=== PATIENT | male | born 1940 | race Caucasian/White ===

== ENCOUNTER → 2017-02-18 | Day surgery (SDC) | payer OTHER ==
[~2017-02-18] VITALS: Ht 182.9 cm; Wt 156.0 kg
[~2017-02-18] MED LIST: ACET-1138 PO; AMOX500C3 PO; APIX1TAB3 PO; ASPI81TA28 PO; CHLOTAB3 PO; CLB/200 PO; CLC100 PO; CLC6 PO; CRS10 PO; DABI1CAP PO; FERR325T51 PO; FERRTAB18 PO; FRS/40 PO; HYDR-4795 RE; HYDR25SU6 RE; LIDOCAINE HCL 2% 2 ML VIAL (20MG/ML) ONE; LOSA1TAB PO; METO25TA3 PO; OXYC1TAB3 PO; PANT40TA PO; POTA10CA28 PO; PREG1CAP70 PO; PROPOFOL IV EMULSION 10 MG/ML 20 ML VIAL IV ONE; PSEU120T21 PO; ROPI2TAB6 PO
[2017-02-18 06:59] VITALS: Ht 182.9 cm; Wt 156.0 kg
[2017-02-18 07:00] VITALS: BP 139/89; PULSE 65; TEMP 36.3; O2SAT 97
--- NOTE | 2017-02-18 07:27 | History and Physical ---
History & Physical Date of Service February 18, 2017. History & Physical Patient Name: Jignesh Ellsworth Date of : 1940 CHIEF COMPLAINT: Exertional shortness of breath, atrial fibrillation HISTORY OF PRESENT ILLNESS: Mr Ellsworth to 76-year-old male had recently been seen as an outpatient in routine cardiology follow-up and had been noted to of reverted back to atrial fibrillation. He undergone prior direct-current cardioversion in 2014. He complained of worsening exertional shortness of breath with activity such as walking in his home or trying to climb stairs. In addition to his history of atrial fibrillation, he is also followed for calcific aortic valve stenosis. At a recent repeat echocardiogram revealed normal LVEF and stable moderate aortic valve stenosis. The patient had tentatively been scheduled for direct- current cardioversion approximately 3 weeks ago but this had to be canceled because his international normalized ratio was below goal. He had since been transitioned to Eliquis which his is tolerating well and had not missed any doses. PAST MEDICAL HISTORY: 1. Persistent atrial fibrillation 2. Right bundle branch block 3. Obesity 4. Moderate aortic valve stenosis 5. Tim's esophagus 6. Diabetes 7. Dyslipidemia 8. Hypertension 9. Traumatic intracranial hemorrhage 10. Osteoarthritis 11. Obstructive sleep apnea for which he is on CPAP PAST SURGICAL HISTORY: 1. Insertion of inferior vena cava 2003 2. Bilateral knee replacement 5. Direct-current cardioversion 2014 FAMILY HISTORY: I cholesterol, hypertension SOCIAL HISTORY: Nonsmoker , he is retired meteorologist REVIEW OF SYSTEMS: A Complete Review of 10 Systems is as stated above or negative. ALLERGIES: Ramelteon (Verified Allergy, Unknown, HIVES, 05/09/14) HOME MEDICATIONS: Medications Dose Route/Sig Max Daily Dose Days Date Category Eliquis (Apixaban) 5 Mg Tab 5 Mg PO BID 02/18/17 Reported Cozaar (Losartan Potassium) 25 Mg Tab 25 Mg PO QAM 07/18/16 Reported Colcrys (Colchicine) 0.6 Mg Tab 1 Tab PO HS 07/18/16 Reported Iron Supplement (Ferrous Sulfate) 325 Mg Tab 1 Tab PO Q2D 30 07/11/15 Reported Parafon Forte Dsc (Chlorzoxazone) 500 Mg Tab 500 Mg PO TID PRN 07/11/15 Reported Roxicodone Ir (Oxycodone HCl) 5 Mg Tab 1 Tab PO Q4H PRN 07/11/15 Reported Aspirin Ec (Aspirin) 81 Mg Tab 81 Mg PO DAILY 11/10/13 Reported Toprol Xl (Metoprolol Succinate) 25 Mg Tabcr 25 Mg PO QAM 11/10/13 Reported Micro-K Ext Rel (Potassium Chloride) 10 Meq Capcr 10 Meq PO QAM 11/10/13 Reported Lasix (Furosemide) 40 Mg Tab 40 Mg PO QAM 11/10/13 Reported CeleBREX (Celecoxib) 200 Mg Cap 200 Mg PO BID 11/10/13 Reported Colace * (Docusate Sodium) 100 Mg Cap 100 Mg PO BID 09/20/11 Reported Crestor * (Rosuvastatin Calcium) 5 Mg Tab 5 Mg PO HS 08/21/11 Reported Protonix (Pantoprazole Sodium) 40 Mg Tab 40 Mg PO QAM 08/21/11 Reported Lyrica (Pregabalin) 150 Mg Cap 150 Mg PO BID 08/21/11 Reported Requip (Ropinirole HCl) 2 Mg Tab 2 Mg PO HS 08/21/11 Reported PHYSICAL EXAMINATION: Last Vital Signs Documentation Date Time Temp Pulse Resp B/P Pulse Ox O2 Delivery O2 Flow Rate FiO2 02/18/17 07:00 36.3 65 16 139/89 97 Room Air General: AAOx3, No acute distress Head exam is unremarkable. No scleral icterus of corneal arcus noted. Neck is without jugular venous distension, thyromegally, or carotid bruits. Carotid upstrokes are brisk bilaterally. no bruits Lungs are clear to auscultation and percussion. Cardiac exam : Irregular rhythm, 2/6 systolic murmur Abdominal exam: Obese, soft nontender Extremities: 1+ bilateral lower extremity edema, chronically wears compression stockings Psychiatric: normal affect and mood. Neurologic: grossly normal, no focal deficits ADDITIONAL DATA: Telemetry reveals atrial fibrillation, rate controlled, right bundle branch block morphology ASSESSMENT: 1. Exertional shortness of breath, symptomatic atrial fibrillation 2. Moderate aortic stenosis 3. Obesity 4. Obstructive sleep apnea on CPAP RECOMMENDATIONS / PLAN: Patient had taken his most recent dose Eliquis this am at 5 am. He reports no recent missed doses. Plan to proceed with direct-current cardioversion with the assistance of anesthesia. Informed consent was obtained and is on the chart. Sergey Minor DO, [facility] Associate Browning Processor [facility] The chart was completed utilizing [employer] Speech Voice Recognition Software. Grammatical errors, random word insertions, pronoun errors, and incomplete sentences are an occasional consequence of this system due to software limitations, ambient noise, and hardware issues. Any formal questions or concerns about the content, text, or information contained within the body of this dictation should be directly addressed to the provider for clarification.
[2017-02-18 07:43] VITALS: BP 118/83; PULSE 71; O2SAT 97
[2017-02-18 07:45] VITALS: BP 107/71; PULSE 63; O2SAT 96
[2017-02-18 07:50] VITALS: BP 102/71; PULSE 64; O2SAT 98
--- NOTE | 2017-02-18 07:54 | Cardiology Procedure Brief Nt ---
Preliminary Cardiology Note Procedure Date February 18, 2017. Pre-Procedure Diagnosis atrial fibrillation Post-Procedure Diagnosis unsuccessful direct current cardioversion Procedure(s) Performed Direct-current cardioversion Body Coverer Sergey Minor DO Vamp Creaser(s) not appicable Estimated Blood Loss none Preliminary Findings After informed consent was obtained and timeout was performed the patient underwent synchronized direct-current cardioversion receiving doses of 300 J and 360 J of biphasic energy. The patient was in sinus rhythm for repeat brief time, after the second dose of energy but then reverted back to a rate controlled atrial fibrillation. Vital signs remained stable throughout the procedure. Recommendations Continue current medications. Anesthesia 40 mg of IV lidocaine and 60 mg of IV propofol, Dr Elida Pierson, anesthesia Complication(s) None Disposition cardiac laboratory courier recovery unit
--- NOTE | 2017-02-18 08:42 | Anesthesiology Progress Note ---
Anesthesia Post Op Note Date & Time February 18, 2017 at 08:42 Vital Signs Pain Intensity: 0 Vital Signs Past 12 Hours Date Time Temp Pulse Resp B/P Pulse Ox O2 Delivery O2 Flow Rate FiO2 02/18/17 08:30 73 18 97/80 95 Room Air 02/18/17 08:20 51 18 120/74 95 Room Air 02/18/17 08:13 56 18 120/72 94 Room Air 02/18/17 08:03 55 18 118/73 94 Nasal Cannula 2 02/18/17 07:53 36.4 63 18 123/76 97 Nasal Cannula 2 02/18/17 07:50 64 16 102/71 98 Nasal Cannula 4 02/18/17 07:45 63 16 107/71 96 Nasal Cannula 4 02/18/17 07:43 71 16 118/83 97 Nasal Cannula 4 02/18/17 07:00 36.3 65 16 139/89 97 Room Air Notes Mental Status: alert / awake / arousable, participated in evaluation Pt Amnestic to Procedure: Yes Nausea / Vomiting: adequately controlled Pain: adequately controlled Airway Patency, RR, SpO2: stable & adequate, see Notes BP & HR: stable & adequate Hydration State: stable & adequate Anesthetic Complications: no major complications apparent unable to convert to SR
--- NOTE | 2017-02-18 08:44 | Discharge Instructions ---
Discharge Instructions Procedure Procedure Date: February 18, 2017. Reason for Visit: atrial fibrillation Discharge Discharge Date: February 18, 2017. Discharge Diagnosis: persistent atrial fibrillation, unsuccessful cardioversion Last Recorded Wt (Kilograms): 156 Anesthesia Post Anesthesia Instructions: If you have had General Anesthesia or IV Sedation: * Do not drive today. * Resume driving when surgeon permits. * Do not make important decisions or sign legal documents today. * Call surgeon for: 1. Temperature elevations greater than 101 degrees F. 2. Uncontrollable pain. 3. Excessive bleeding. 4. Persistent nausea and vomiting. 5. Medication intolerance (nausea, vomiting or rash). * For nausea and vomiting use only clear liquids such as: tea, soda, bouillon until nausea subsides, then gradually increase diet as tolerated. * If you have any concerns or questions, call your surgeon's office. If physician is unavailable and it is an emergency, call 911 or go to the nearest emergency room. Instructions Activity Recommendations: limitations as noted below Recommended Home Diet: resume previous diet Allergies: Coded Allergies: Ramelteon (Verified Allergy, Unknown, HIVES, 07/18/16) Provider Instructions ACTIVITY RECOMMENDATIONS: Resume activities as tolerated with no limitations unless specified. x__ No lifting over _10_ pounds for 24 hours. x_ Do not engage in vigorous exercise, sexual activity, or sports for 24 hours. x_ Do not drive or operate any motorized equipment for 24 hours. x__ You may return to work/school tomorrow. SPECIAL CARE: If you experience coughing up or vomiting of blood, contact ___Dr Minor ___ Follow Up Follow-up with: Dr Minor as planned [facility] Recommendations: Call your doctor if: * Temperature above 101 degrees * Pain not relieved by pain medicine ordered * There is increased drainage or redness from any incision * You have any unanswered questions or concerns. Your Doctors Instructions noted above were prepared by provider Sergey Minor. Patient Signature Section: Patient Instructions Signature Page Jignesh Ellsworth Patient (or Guardian) Signature/Date: I have read and understand the instructions given to me by my caregivers. Caregiver/RN/Doctor Signature/Date: The above-named patient and/or guardian has received patient instructions on this date. + Original Patient Signature Page (only) stays with chart. Please make copy for patient.
[2017-02-18 08:45] VITALS: BP 110/76; PULSE 80; O2SAT 97
--- NOTE | 2017-02-18 09:10 | CARDIOVERSION ---
DATE OF OPERATION: 02/18/2017 CARDIOVERSION DATE OF PROCEDURE: 02/18/2017. PREPROCEDURE DIAGNOSIS: Persistent atrial fibrillation. POSTPROCEDURE DIAGNOSIS: Unsuccessful direct current cardioversion, persistent atrial fibrillation. PROCEDURE PERFORMED: Synchronized direct current cardioversion. ADAPTED PHYSICAL EDUCATION TEACHER: Sergey Minor D.O. AGILE BUSINESS ANALYST: Not applicable. PROCEDURE: After informed consent was obtained and time out was performed, the patient underwent synchronized direct current cardioversion receiving doses of 300 joules and 360 joules of biphasic energy. The patient was in sinus rhythm for a brief amount of time after the second dose of energy and then revered back to a rate controlled atrial fibrillation with right bundle branch block unchanged compared to his previous EKG. The vital signs remained stable throughout the procedure. Anesthesia was administered by Dr. Chun Pierson of the anesthesia department per anesthesia consultation and the patient received 40 mg of IV lidocaine and 60 mg of IV propofol. COMPLICATIONS: None. DISPOSITION: The patient is to recover in the cardiac cauterization recovery unit and then be discharged to home. RECOMMENDATIONS: Continue same medications including Eliquis for anticoagulation which will be due this evening. I attest to the content of the Intraoperative Record and any orders documented therein. Any exceptions are noted below. MTDD
== END | disposition home or self-care (01) ==
LOC: C.CATH 06:33
PROVIDERS: ATTEND Specialist
DX: I48.1 Persistent atrial fibrillation (principal); I45.10 Unspecified right bundle-branch block; Q23.0 Congenital stenosis of aortic valve; E11.9 Type 2 diabetes mellitus without complications; E78.5 Hyperlipidemia, unspecified; I10 Essential (primary) hypertension; M19.90 Unspecified osteoarthritis, unspecified site; Z98.890 Other specified postprocedural states; Z96.653 Presence of artificial knee joint, bilateral; Z79.82 Long term (current) use of aspirin; Z79.899 Other long term (current) drug therapy; G47.33 Obstructive sleep apnea (adult) (pediatric); Z68.42 Body mass index [BMI] 45.0-49.9, adult; E66.9 Obesity, unspecified

== ENCOUNTER → 2017-04-29 | Day surgery (SDC) | payer OTHER ==
--- NOTE | 2017-04-28 17:15 | History and Physical ---
History & Physical Date & Time of Service: Apr 28, 2017 at 17:03 Chief Complaint: Persistent atrial fibrillation, direct current cardioversion Primary Care Physician: Reid Gastelum M.D. History of Present Illness Jignesh Martinez is a 76 year old male with a history of right bundle branch block, moderate aortic valve stenosis and recurrent symptomatic atrial fibrillation. He had a past trial of direct current cardioversion in 2014 and remained in sinus rhythm, however at a follow-up visit earlier this year he was found to have reverted back to atrial fibrillation with controlled ventricular rate. Direct current cardioversion was attempted again on 02/18/2017 receiving doses of 300 joules and 360 joules but the cardioversion was unsuccessful and he remained in atrial fibrillation. He had been placed on amiodarone as an outpatient with plans to return again for another trial of direct current cardioversion. He had several days of rectal bleeding and had therefore held several doses of Eliquis, prompting his repeat trial of cardioversion to be delayed and now he has been on anticoagulation for greater than a month without interruption. He notes continued exertional shortness of breath that is unchanged compared to his last clinic follow-up visit in February. He has recently tolerated a trip to [place] where he attended the for his sister who after a long de la vega with cancer. Past Medical/Surgical History Past Medical History: 1. Obesity 2. Osteoarthritis 3. Hypertension 4. Right bundle branch block 5. Former smoker 6. Stage 3 chronic kidney disease 7. Internal hemorrhoids 8. Moderate aortic valve stenosis 9. Obstructive sleep apnea Past Surgical History: direct current cardioversion 02/18/2017 Direct current Cardioversion, 2014 left total knee replacement 2010, right knee replacement 2003 Lumbar laminectomy L4-L5 1971 Family History: mother of complications heart failure at age 55 Social History: , retired meteorologist Family History High cholesterol Hypertension Social History Smoking Status: Former Smoker Drug Use: none Marital Status: Occupational Status: retired Immunizations History of Influenza Vaccine: Yes History of Tetanus Vaccine?: Unknown History of Pneumococcal: Yes Pneumococcal Date: Sep 22, 2011 History of Hepatitis B Vaccine: Unknown Multi-Drug Resistant Organisms History of MDRO: No Allergies Coded Allergies: Ramelteon (Verified Allergy, Unknown, HIVES, 07/18/16) Home Medications Scheduled Apixaban (Eliquis), 5 MG PO BID Aspirin (Aspirin Ec), 81 MG PO DAILY Celecoxib (CeleBREX), 200 MG PO BID Colchicine (Colcrys), 1 TAB PO HS Docusate Sodium (Colace *), 100 MG PO BID Ferrous Sulfate (Iron Supplement), 1 TAB PO Q2D Furosemide (Lasix), 40 MG PO QAM Losartan Potassium (Cozaar), 25 MG PO QAM Metoprolol Succinate (Toprol Xl), 25 MG PO QAM Pantoprazole (Protonix), 40 MG PO QAM Potassium Chloride (Micro-K Ext Rel), 10 MEQ PO QAM Pregabalin (Lyrica), 150 MG PO BID Ropinirole (Requip), 2 MG PO HS Rosuvastatin Calcium (Crestor *), 5 MG PO HS Scheduled PRN Chlorzoxazone (Parafon Forte Dsc), 500 MG PO TID PRN for Muscle Spasms Oxycodone Ir (Roxicodone Ir), 1 TAB PO Q4H PRN for Pain Review of Systems review of systems notable for exertional shortness of breath, otherwise 10 point review of systems is negative Physical Exam Vital Signs Last Vital Signs Documentation Date Time Temp Pulse Resp B/P (MAP) Pulse Ox O2 Delivery O2 Flow Rate FiO2 04/29/17 07:01 36.5 73 16 144/79 96 Room Air General Appearance: no apparent distress Head: normocephalic Neck: supple Cardiovascular: + systolic murmur, + irregularly irregular Abdomen/GI: non tender, soft Back: normal inspection Neurologic/Psych: + pertinent finding ( chronic edema, compression stockings in place) Diagnostics EKG EKG performed 03/19/2017: Atrial fibrillation at 72 beats per minute, right bundle branch block, age undetermined inferior infarction pattern, chronic Impression Assessment and Plan Impression: 1. symptomatic atrial fibrillation 2. Right bundle branch block 3. Moderate aortic valve stenosis, preserved LV EF 4. Morbid obesity 5. Obstructive sleep apnea Plan: Proceed with direct current cardioversion with the assistance of anesthesia Consult On the last attempted cardioversion the patient received 40 milligrams of IV lidocaine at 60 milligrams of IV propofol which He tolerated well from a respiratory standpoint.
[~2017-04-29] VITALS: Ht 182.9 cm; Wt 150.0 kg
[~2017-04-29] MED LIST changes: -ACET-1138 PO; -HYDR-4795 RE; -HYDR25SU6 RE; -LIDOCAINE HCL 2% 2 ML VIAL (20MG/ML) ONE; -PROPOFOL IV EMULSION 10 MG/ML 20 ML VIAL IV ONE; -PSEU120T21 PO
[2017-04-29 06:56] VITALS: Ht 182.9 cm; Wt 150.0 kg
[2017-04-29 07:01] VITALS: BP 144/79; PULSE 73; TEMP 36.5; O2SAT 96
--- NOTE | 2017-04-29 08:06 | History & Physical Bridge Note ---
H&P Re-Evaluation Bridge Note: I have examined the patient, reviewed the History & Physical and in the interval since the performance of the History & Physical I have noted the following changes of clinical significance: No changes noted
[2017-04-29 08:08] VITALS: BP 130/81; PULSE 73; O2SAT 100
[2017-04-29 08:10] VITALS: BP 107/48; PULSE 68; O2SAT 96
[2017-04-29 08:14] VITALS: BP 107/70; PULSE 63; O2SAT 96
--- NOTE | 2017-04-29 08:17 | Cardiology Procedure Brief Nt ---
Preliminary Cardiology Note Procedure Date Apr 29, 2017. Pre-Procedure Diagnosis symptomatic atrial fibrillation Post-Procedure Diagnosis continued AF Procedure(s) Performed DCCV, unsuccessful Commissioned Fire Officer Martina Minor DO Supervisor Microwave(s) not applicable Estimated Blood Loss none Preliminary Findings DCCV attempted administering shocks of 360 J x 2. Recommendations Continued medication therapy. Specimens none Anesthesia propofol 70 mg Complication(s) None Disposition recovery in cardiac distillery laborer preparatory area, then DC to home
--- NOTE | 2017-04-29 08:20 | Discharge Instructions ---
Discharge Instructions Procedure Procedure Date: Apr 29, 2017. Reason for Visit: atrial fibrillation, cardioversion Discharge Discharge Date: Apr 29, 2017. Discharge Diagnosis: unsuccessful cardioversion, continued AF Last Recorded Wt (Kilograms): 150 Anesthesia Post Anesthesia Instructions: If you have had General Anesthesia or IV Sedation: * Do not drive today. * Resume driving when surgeon permits. * Do not make important decisions or sign legal documents today. * Call surgeon for: 1. Temperature elevations greater than 101 degrees F. 2. Uncontrollable pain. 3. Excessive bleeding. 4. Persistent nausea and vomiting. 5. Medication intolerance (nausea, vomiting or rash). * For nausea and vomiting use only clear liquids such as: tea, soda, bouillon until nausea subsides, then gradually increase diet as tolerated. * If you have any concerns or questions, call your surgeon's office. If physician is unavailable and it is an emergency, call 911 or go to the nearest emergency room. Instructions Activity Recommendations: resume regular activity Recommended Home Diet: resume previous diet Allergies: Coded Allergies: Ramelteon (Verified Allergy, Unknown, HIVES, 07/18/16) Provider Instructions ACTIVITY RECOMMENDATIONS: Resume activities as tolerated with no limitations unless specified. _x_ No lifting over _10_ pounds for 24 hours. _x_ Do not engage in vigorous exercise, sexual activity, or sports for 24 hours. _x_ Do not drive or operate any motorized equipment for 24 hours. _x_ You may return to work/school tomorrow. SPECIAL CARE: If you experience coughing up or vomiting of blood, contact _Dr Minor, [phone] Follow Up [facility] Recommendations: Call your doctor if: * Temperature above 101 degrees * Pain not relieved by pain medicine ordered * There is increased drainage or redness from any incision * You have any unanswered questions or concerns. Your Doctors Instructions noted above were prepared by provider Sergey Minor. Patient Signature Section: Patient Instructions Signature Page Jignesh Ellsworth Patient (or Guardian) Signature/Date: I have read and understand the instructions given to me by my caregivers. Caregiver/RN/Doctor Signature/Date: The above-named patient and/or guardian has received patient instructions on this date. + Original Patient Signature Page (only) stays with chart. Please make copy for patient.
[2017-04-29 08:55] VITALS: BP 108/71; PULSE 68; O2SAT 97
--- NOTE | 2017-04-29 08:58 | Anesthesiology Progress Note ---
Anesthesia Post Op Note Date & Time Apr 29, 2017 at 08:58 Vital Signs Pain Intensity: 0 Vital Signs Past 12 Hours Date Time Temp Pulse Resp B/P (MAP) Pulse Ox O2 Delivery O2 Flow Rate FiO2 04/29/17 08:30 65 14 120/71 (87) 97 Room Air 04/29/17 08:15 63 16 107/74 (85) 98 Nasal Cannula 6 04/29/17 08:14 63 16 107/70 96 Nasal Cannula 6 04/29/17 08:10 68 16 107/48 96 Nasal Cannula 6 04/29/17 08:08 73 22 130/81 100 Nasal Cannula 6 04/29/17 07:01 36.5 73 16 144/79 96 Room Air Notes Mental Status: alert / awake / arousable, participated in evaluation Pt Amnestic to Procedure: Yes Nausea / Vomiting: adequately controlled Pain: adequately controlled Airway Patency, RR, SpO2: stable & adequate BP & HR: stable & adequate Hydration State: stable & adequate Anesthetic Complications: no major complications apparent
--- NOTE | 2017-04-29 09:57 | Cardioversion ---
Electricial Cardioversion Rpt Date of Service: 04/29/2017 Electrical Cardioversion Rprt Procedure Date Apr 29, 2017. Pre-Procedure Diagnosis symptomatic atrial fibrillation Post-Procedure Diagnosis continued AF Procedure(s) Performed synchronized DCCV, unsuccessful Wood Cutter Martina Minor DO Mold Forms Builder(s) not applicable Estimated Blood Loss none Procedure Patient confirmed that he has been on anticoagulation with Eliquis for at least one month, without missed doses. His most recent dose was at about 520 am this morning with a sip of water. After informed consent was obtained and a time out was performed the patient was sedated with the assistance of Dr Avitia from anesthesia receiving 70 mg of IV propofol. Synchronized DCCV attempted administering shocks of 360 J x 2. Recommendations Continued medication therapy including Eliquis for stroke prophylaxis. Specimens none Anesthesia propofol 70 mg, administered by Dr Avitia, anesthesia consult Complication(s) None Disposition recovery in cardiac distillery laborer preparatory area, then DC to home
== END | disposition home or self-care (01) ==
LOC: C.CATH 06:50
PROVIDERS: ATTEND Specialist
DX: I48.91 Unspecified atrial fibrillation (principal); I45.10 Unspecified right bundle-branch block; I33.9 Acute and subacute endocarditis, unspecified; E66.9 Obesity, unspecified; M19.90 Unspecified osteoarthritis, unspecified site; Z87.891 Personal history of nicotine dependence; N18.3 Chronic kidney disease, stage 3 (moderate); I12.9 Hypertensive chronic kidney disease with stage 1 through stage 4 chronic kidney disease, or unspecified chronic kidney disease; G47.33 Obstructive sleep apnea (adult) (pediatric); Z96.653 Presence of artificial knee joint, bilateral; Z82.49 Family history of ischemic heart disease and other diseases of the circulatory system

== ENCOUNTER → 2017-06-17 | Day surgery (SDC) | payer OTHER ==
[2017-06-10 13:10] VITALS: Ht 182.9 cm; Wt 149.6 kg
[~2017-06-17] VITALS: Ht 182.9 cm; Wt 149.6 kg
[~2017-06-17] MED LIST changes: -APIX1TAB3 PO; -FERR325T51 PO; +KETAMINE HCL INJ 50 MG/ML 10 ML VIAL ONE; +LIDOCAINE HCL 2% 2 ML VIAL (20MG/ML) ONE; -LOSA1TAB PO; +PROPOFOL IV EMULSION 10 MG/ML 20 ML VIAL IV ONE; +SODIUM CHLORIDE 0.9% 500ML 500 ML IV ONE
--- NOTE | 2017-06-17 13:00 | Endo History and Physical ---
History & Physical Date of Service: Jun 17, 2017. Chief Complaint: history of polyps Referring Physician: Dr. Reid Gastelum History of Present Illness H/o polyps Past Medical History Diabetes, Arthritis, Fractures, Reflux, Blood Dyscrasias, High Cholesterol, Sleep Apnea, Heart Disease, Hypertension, Other Past Surgical History Hx Cardiac Surgery: Yes (HEART CATH, NO STENTS; CARDIOVERSION X3) Hx Internal Defibrillator: No Hx Pacemaker: No Hx Abdominal Surgery: No Hx of Implantable Prosthesis: No Hx Post-Op Nausea and Vomiting: No Hx Cancer Surgery: No Hx Thoracic Surgery: No Hx Orthopedic: Yes (RT PARTIAL KNEE REPLACEMENT, RT TKA, LT TKA, RT ANKLE, RT RCR) Hx Urinary Tract Surgery: Yes (VARICOCELE REPAIR) Family History None Social History Smoking Status: Former Smoker Hx Substance Use: No Hx Alcohol Use: Yes (RECOVERING ALCHOLOLIC QUIT 5-6 YEARS AGO; OCCASIONAL DRINK NOW) Allergies Coded Allergies: Ramelteon (Verified Allergy, Unknown, HIVES, 06/10/17) Current Medications Reported Home Medications Medications Dose Route/Sig Max Daily Dose Days Date Category Amoxil (Amoxicillin) 500 Mg Cap 500 Mg PO TID 06/17/17 Reported Vitron-C (Iron-Vitamin C) 1 Tab Tab 1 Tab PO QPM 06/10/17 Reported Pradaxa (Dabigatran Etexilate Mesylate) 75 Mg Cap 75 Mg PO BID 06/10/17 Reported Colcrys (Colchicine) 0.6 Mg Tab 1 Tab PO HS 07/18/16 Reported Parafon Forte Dsc (Chlorzoxazone) 500 Mg Tab 500 Mg PO TID PRN 07/11/15 Reported Roxicodone Ir (Oxycodone HCl) 5 Mg Tab 1 Tab PO Q4H PRN 07/11/15 Reported Aspirin Ec (Aspirin) 81 Mg Tab 81 Mg PO QPM 11/10/13 Reported Toprol Xl (Metoprolol Succinate) 25 Mg Tabcr 25 Mg PO QAM 11/10/13 Reported Micro-K Ext Rel (Potassium Chloride) 10 Meq Capcr 10 Meq PO QAM 11/10/13 Reported Lasix (Furosemide) 40 Mg Tab 40 Mg PO QAM 11/10/13 Reported CeleBREX (Celecoxib) 200 Mg Cap 200 Mg PO BID 11/10/13 Reported Colace * (Docusate Sodium) 100 Mg Cap 100 Mg PO BID 09/20/11 Reported Crestor * (Rosuvastatin Calcium) 5 Mg Tab 5 Mg PO HS 08/21/11 Reported Protonix (Pantoprazole Sodium) 40 Mg Tab 40 Mg PO QAM 08/21/11 Reported Lyrica (Pregabalin) 150 Mg Cap 150 Mg PO BID 08/21/11 Reported Requip (Ropinirole HCl) 2 Mg Tab 2 Mg PO HS 08/21/11 Reported Vital Signs Weight (Kilograms): 149.55 Height (Feet): 6 Height (Inches): 0 Date Time Temp Pulse Resp B/P (MAP) Pulse Ox O2 Delivery O2 Flow Rate FiO2 06/17/17 12:34 36.5 68 20 137/79 (98) 96 Room Air Physical Exam General Appearance: no apparent distress Respiratory/Chest: Auscultation: breath sounds normal, CTA except as noted Cardiovascular: Heart Auscultation: RRR Abdomen: Inspection & Palpation: soft Assessment and Plan H/o polyps - cscopy
--- NOTE | 2017-06-17 13:40 | GI REPORT ---
Procedure Date: 06/17/2017 12:57 PM Procedure: Colonoscopy Indications: High risk colon cancer surveillance: Personal history of colonic polyps Medicines: See the Anesthesia note for documentation of the administered medications Complications: No immediate complications. Estimated Blood Loss: Estimated blood loss: none. Procedure: Pre-Anesthesia Assessment: - ASA Grade Assessment: III - A patient with severe systemic disease. After I obtained informed consent, the scope was passed under direct vision. Throughout the procedure, the patient's blood pressure, pulse, and oxygen saturations were monitored continuously. The Scope was introduced through the anus and advanced to the terminal ileum. The colonoscopy was performed without difficulty. The patient tolerated the procedure well. The quality of the bowel preparation was good. Findings: The perianal and digital rectal examinations were normal. A few small-mouthed diverticula were found in the sigmoid colon. There were large, prominent veins in the rectosigmoid colon. The exam was otherwise without abnormality. Impression: - Diverticulosis in the sigmoid colon. - The examination was otherwise normal. - No specimens collected. Recommendation: - Discharge patient to home. Georges Ramachandran MD 06/17/2017 1:40:20 PM This report has been signed electronically. Note Initiated On: 06/17/2017 12:57 PM I attest to the content of the Intraoperative Record and orders documented therein, exceptions below
--- NOTE | 2017-06-17 13:41 | Discharge Instructions ---
Endoscopy Patient Instructions Date / Procedure(s) Performed Jun 17, 2017. Colonoscopy Allergy Information Coded Allergies: Ramelteon (Verified Allergy, Unknown, HIVES, 06/10/17) Discharge Date / Findings Jun 17, 2017. Mild diverticulosis. No polyps. Medication Instructions Stopped Medication(s): last dose Iron with vitamin C on Friday.last dose Pradaxa yesterday at 0700 Resume pradaxa, iron today. Provider Instructions Activity Restrictions - No exercising or heavy lifting for 24 hours. - Do not drink alcohol the day of the procedure. - Do not drive a car or operate machinery until the day after the procedure. - Do not make any important decisions or sign important papers in 24 hours after the procedure. Following Day: - Return to full activity which may include returning to work/school. Diet Start your diet with liquids and light foods (jello, soup, juice, toast). Then eat your usual diet if not nauseated. Treatment For Common After Affects For mild abdominal pain, bloating, or excessive gas: - Rest - Eat lightly - Lie on right side Follow-Up Information Follow-up with Dr. Reid Gastelum as scheduled Anesthesia Information What You Should Know You have had a procedure that required some medicine to reduce anxiety and discomfort. This treatment is called moderate sedation. After receiving the treatment, you may be sleepy, but you will be able to breathe on your own. The effects of the treatment may last for several hours. Follow these instructions along with Activity/Diet recommendations noted above: * Do NOT do anything where dizziness or clumsiness would be dangerous. * Rest quietly at home today, then you can be up and about tomorrow. * Have a responsible person stay with you the rest of today. * You may have had an I.V. today. If so, you may take the dressing off later today. Recommendations Call your doctor if: * Trouble breathing * Continuous vomiting for more than 24 hours * Temperature above 101 degrees * Severe abdominal pain or bloating * Pain not relieved by pain medicine ordered * There is increased drainage or redness from any incision * A large amount of rectal bleeding greater than 2-3 tablespoons. (If you had a polyp/s removed or have hemorrhoids, a small amount of blood - from the rectum is to be expected.) * You have any unanswered questions or concerns. IN THE EVENT OF A SERIOUS EMERGENCY, GO TO THE NEAREST EMERGENCY ROOM Your discharge instructions were prepared by provider Yadira Christie. Patient Instructions Signature Page Jignesh Ellsworth Patient (or Guardian) Signature/Date: I have read and understand the instructions given to me by my caregivers. Caregiver/RN/Doctor Signature/Date: The above-named patient and/or guardian has received patient instructions on this date. + Original Patient Signature Page (only) stays with chart. Please make copy for patient.
--- NOTE | 2017-06-17 14:01 | Anesthesiology Progress Note ---
Anesthesia Post Op Note Date & Time Jun 17, 2017 at 14:01 Vital Signs Pain Intensity: 1 Vital Signs Past 12 Hours Date Time Temp Pulse Resp B/P (MAP) Pulse Ox O2 Delivery O2 Flow Rate FiO2 06/17/17 13:50 65 20 127/76 (93) 97 Room Air 06/17/17 13:34 84 20 94/53 (67) 95 Room Air 06/17/17 12:34 36.5 68 20 137/79 (98) 96 Room Air Notes Mental Status: alert / awake / arousable, participated in evaluation Pt Amnestic to Procedure: Yes Nausea / Vomiting: adequately controlled Pain: adequately controlled Airway Patency, RR, SpO2: stable & adequate BP & HR: stable & adequate Hydration State: stable & adequate Anesthetic Complications: no major complications apparent
[2017-06-17 14:05] VITALS: BP 150/89; PULSE 62; O2SAT 98
== END | disposition home or self-care (01) ==
LOC: C.GI 12:06
PROVIDERS: ATTEND Internal Medicine Gastroenterology
DX: Z12.11 Encounter for screening for malignant neoplasm of colon (principal); Z86.010 Personal history of colon polyps; K57.30 Diverticulosis of large intestine without perforation or abscess without bleeding; I10 Essential (primary) hypertension; E78.00 Pure hypercholesterolemia, unspecified; E11.9 Type 2 diabetes mellitus without complications; K21.9 Gastro-esophageal reflux disease without esophagitis; G47.30 Sleep apnea, unspecified; D75.9 Disease of blood and blood-forming organs, unspecified; M19.90 Unspecified osteoarthritis, unspecified site; Z87.891 Personal history of nicotine dependence; Z79.01 Long term (current) use of anticoagulants; Z79.82 Long term (current) use of aspirin; Z79.899 Other long term (current) drug therapy